=== PATIENT | male | born 1980 | race Caucasian/White ===

== ENCOUNTER 2020-09-25 21:30 | Emergency (ER) | payer MEDICAID ==
[2020-09-25] MEDS ORDERED: LIDOCAINE 5% (700 MG) TRANSDERMAL ADH..PATCH TP ONE (23:28)
--- NOTE | 2020-09-25 23:34 | ER Document Report ---
HPI - HPI Patient complains to provider of: Back pain Time Seen by Provider: 09/25/20 23:21 Pain Level: 3 Context: 40-year-old male presents to the emergency room complaining of worsening low back pain that started yesterday after scrubbing his tub. States he twisted the wrong way had pain that went down both his legs. History of chronic back pain secondary to being in the . Denies any herniated or bulging disc. Denies any loss control of her bowels or bladder. States it is usually relieved with heating pads and ibuprofen this time its not been working. No saddle anesthesia. No red flags. Associated Symptoms: None Exacerbated by: Movement Relieved by: Denies Similar symptoms previously: Yes - History chronic back pain Recently seen / treated by doctor: No - ROS Systems Reviewed and Negative: Yes All other systems reviewed and negative - NEURO Neurology: DENIES: Headache, Weakness - GASTROINTESTINAL Gastrointestinal: DENIES: Abdominal Pain, Nausea, Patient vomiting - URINARY Urinary: DENIES: Dysuria, Urgency, Frequency - MUSCULOSKELETAL Musculoskeletal: REPORTS: Back Pain - DERM Skin Color: Normal Skin Problems: None Past Medical History - General Information source: Patient - Social History Smoking Status: Never Smoker Chew tobacco use (# tins/day): Yes Frequency of alcohol use: None Drug Abuse: None Family History: Reviewed & Not Pertinent Vertical Provider Document - CONSTITUTIONAL Agree With Documented VS: Yes Exam Limitations: No Limitations General Appearance: Mild Distress - INFECTION CONTROL TRAVEL OUTSIDE OF THE [place] IN LAST 30 DAYS: No - HEENT HEENT: Atraumatic, Normocephalic - NECK Neck: Normal Inspection, Supple - RESPIRATORY Respiratory: Breath Sounds Normal, No Respiratory Distress - CARDIOVASCULAR Cardiovascular: Regular Rate, Regular Rhythm, No Murmur - BACK Back: Abnormal Inspection - Mild tenderness on palpation to the lower lumbar region from L4-S1. Nontender of the sciatic notches. Negative straight leg raising bilaterally. No step-offs, no deformities.. negative: CVA Tenderness- Right, CVA Tenderness-Left - MUSCULOSKELETAL/EXTREMETIES Musculoskeletal/Extremeties: FROM - NEURO Level of Consciousness: Awake, Alert, Appropriate Motor/Sensory: No Motor Deficit, No Sensory Deficit Notes: Ambulatory with a steady gait. Neurovascularly intact. - DERM Integumentary: Warm, Dry, No Rash Course - Re-evaluation Re-evalutation: 12/29/20 23:32 Patient drove himself to the emergency room. Will apply lidocaine patch discharged home with a prescription for Flexeril. He was counseled take the Flexeril as prescribed. Can continue with the ibuprofen. Outpatient follow-up with primary care physician if not improving in 2 to 3 days. Patient was given strict return to the emergency room guidelines. Return for any new or worsening symptoms. All questions were answered. Patient verbalized understanding and agrees with plan of care. - Vital Signs Vital signs: Temp Pulse Resp BP Pulse Ox 98.8 F 87 16 121/75 98 09/25/20 22:00 09/25/20 22:00 09/25/20 22:00 09/25/20 22:00 09/25/20 22:00 - Laboratory Results Critical Laboratory Results Reviewed: No Critical Results - Radiology Results Critical Radiology Results Reviewed: No Critical Results Discharge - Discharge Clinical Impression: Lumbar strain Qualifiers: Encounter type: initial encounter Qualified Code(s): S39.012A - Strain of muscle, fascia and tendon of lower back, initial encounter Condition: Stable Disposition: HOME, SELF-CARE Instructions: Muscle Strain ([facility]) Additional Instructions: You have been seen in the Emergency Department (ED) today for back pain. Your workup and exam have not shown any acute abnormalities and you are likely suffering from muscle strain or possible problems with your discs, but there is no treatment that will fix your symptoms at this time. Please take the Flexeril that has been prescribed as directed. You can also continue with your ibuprofen. You can also continue with your ibuprofen. You should also purchase a local lidocaine cream such as "aspercreme with lidocaine" and use per bottle instructions to the affected area. Apply heat to the area as often as you are able. Continue to keep active and avoid prolonged periods of bed rest. Please follow up with your doctor as soon as possible regarding today's ED visit and your back pain. Return to the ED for worsening back pain, fever, weakness or numbness of either leg, or if you develop either (1) an inability to urinate or have bowel movements, or (2) loss of your ability to control your bathroom functions (if you start having "accidents"), or if you develop other new symptoms that concern you.concern you. Prescriptions: Cyclobenzaprine HCl [Flexeril 10 mg Tablet] 10 mg PO TIDP PRN #15 tab PRN Reason:
[2020-09-25 23:39] VITALS: BP 120/72
== END 2020-09-25 23:38 | disposition home or self-care (01) ==
LOC: ER 21:30
DX: S39.012A Strain of muscle, fascia and tendon of lower back, initial encounter (principal); X50.1XXA Overexertion from prolonged static or awkward postures, initial encounter; Y93.E9 Activity, other interior property and clothing maintenance
CPT/HCPCS: 99283; J3490

== ENCOUNTER 2020-09-26 18:52 | Emergency (ER) | payer MEDICAID ==
[2020-09-26] MEDS ORDERED: KETOROLAC TROMETHAMINE 60 MG/2 ML SDV IM ONE (19:38)
[2020-09-26] MEDS ORDERED: ONDANSETRON 4 MG TAB.RAPDIS PO ONE (19:38)
--- NOTE | 2020-09-26 19:46 | ER Document Report ---
ED Medical Screen (RME) - General Chief Complaint: Flank Pain Stated Complaint: LEFT FLANK PAIN Time Seen by Provider: 09/26/20 19:31 Primary Care Provider: DAVID TYLER PA-C [Primary Care Provider] - Follow up as needed Mode of Arrival: Ambulatory Information source: Patient Notes: Patient is a 40-year-old male comes emergency room complaining of left-sided flank pain and abdominal pain. He states he was seen here yesterday for low back pain but did not realize that it was turning into this. He has prescribed a muscle relaxer which is not helping. He does state he has a history of kidney stones but yesterday did not feel this bad or like a kidney stone. Patient states he has not had any urination since about noon today which is approximately 8 hours ago. Anything he eats or drinks seems to be coming back up and vomit. He just vomited prior to coming into the room. He denies any fever. Physical examination shows him to be a well-nourished well-developed 40-year-old male though no apparent distress appears to be in obvious discomfort. Cardiac: Auscultation patient's heart sounds show a heart rate of 75 bpm on the monitor but no auscultated murmurs. Patient's blood pressure is 150/89. Lungs: Bilateral breath sounds with breath sounds increased clear to auscultation. Abdomen: In the sitting position patient does display left-sided flank pain to percussion and moderate amount of discomfort to palpation in the left abdominal area. I have greeted and performed a rapid initial assessment of this patient. A comprehensive ED assessment and evaluation of the patient, analysis of test results and completion of the medical decision making process will be conducted by additional ED providers. Dictation of this chart was performed using voice recognition software; therefore, there may be some unintended grammatical errors. TRAVEL OUTSIDE OF THE [place] IN LAST 30 DAYS: No - Related Data Allergies/Adverse Reactions: No Known Allergies Allergy (Unverified 09/25/20 23:21) Physical Exam - Vital signs Vitals: Temp Pulse Resp BP Pulse Ox 98.9 F 75 16 150/84 H 98 09/26/20 19:06 09/26/20 19:06 09/26/20 19:06 09/26/20 19:06 09/26/20 19:06 Course - Vital Signs Vital signs: Temp Pulse Resp BP Pulse Ox 98.9 F 75 16 150/84 H 98 09/26/20 19:06 09/26/20 19:06 09/26/20 19:06 09/26/20 19:06 09/26/20 19:06 Doctor's Discharge - Discharge Referrals: DAVID TYLER PA-C [Primary Care Provider] - Follow up as needed
--- NOTE | 2020-09-26 20:40 | RADIOLOGY REPORT (SQ) ---
EXAM DESCRIPTION: CT ABDOMEN PELVIS WITHOUT IV CONTRAST COMPLETED DATE/TME: 09/26/2020 19:51 CLINICAL HISTORY: 40 years, Male, Left flank pAIN COMPARISON: None. TECHNIQUE: Axial images without IV contrast. Sagittal coronal reconstruction. Images stored on PACS. All CT scanners at this facility use dose modulation, iterative reconstruction, and/or weight based dosing when appropriate to reduce radiation dose to as low as reasonably achievable (ALARA). FINDINGS: Lung bases unremarkable. Mild elevation of the right hemidiaphragm. Mild fatty liver. Spleen, pancreas, biliary system, adrenal glands, aorta and para-aortic regions are unremarkable. No suspicious bowel or peritoneal abnormalities. Normal appendix. Tiny umbilical hernia. Right kidney without acute findings. Approximately five nonobstructing right kidney stones are present. Left kidney demonstrates minimal swelling and hydronephrosis. A single tiny nonobstructing stone is present. There is left hydroureter. CT of the pelvis demonstrates an elevated stone in the distal left ureter that measures 7 x 3 mm. May represent cluster of two smaller stones. The stones are located just proximal to the left UV junction. Urinary bladder significantly contracted without obvious abnormality. Prostate not enlarged. No suspicious distal colonic abnormalities. Bony pelvis is unremarkable. IMPRESSION: 1. Left hydronephrosis caused by stone formation in the distal left ureter. Possible single elongated stone versus cluster of two smaller stones. 2. Tiny nonobstructing left kidney stone. Multiple nonobstructing right kidney stones. 3. Fatty liver.
[2020-09-26 20:55] LABS: ABSOLUTE LYMPHOCYTES (AUTO) 0.6 10^3/uL (0.5-4.7); ABSOLUTE MONOCYTES (AUTO) 0.9 10^3/uL (0.1-1.4); BASOPHILS % (AUTO) 0.2 % (0-2); EOSINOPHILS % (AUTO) 0.2 % (0-6); HEMATOCRIT 44.3 % (37.9-51.0); HEMOGLOBIN 15.5 g/dL (13.5-17.0); LYMPHOCYTES % (AUTO) 5.5 % (13-45); MEAN CORPUSCULAR HEMOGLOBIN 30.5 pg (27.0-33.4); MEAN CORPUSCULAR VOLUME 87 fl (80-97); MONOCYTES % (AUTO) 7.6 % (3-13); PLATELET COUNT 298 10^3/uL (150-450); RED BLOOD COUNT 5.08 10^6/uL (4.35-5.55); SEGMENTED NEUTROPHILS % (AUTO) 86.5 % (42-78); TOTAL CELLS COUNTED % (AUTO) 100 %; WHITE BLOOD COUNT 11.5 10^3/uL (4.0-10.5)
[2020-09-26 21:07] LABS: ALBUMIN 4.9 g/dL (3.5-5.0); ALKALINE PHOSPHATASE 86 U/L (38-126); ANION GAP 12 (5-19); ASPARTATE AMINO TRANSFERASE 30 U/L (17-59); BILIRUBIN,DIRECT 0.2 mg/dL (0.0-0.4); BILIRUBIN,TOTAL 1.7 mg/dL (0.2-1.3); BLOOD UREA NITROGEN 19 mg/dL (7-20); CALCIUM 10.2 mg/dL (8.4-10.2); CARBON DIOXIDE 27 mmol/L (22-30); CHLORIDE 101 mmol/L (98-107); GLUCOSE 111 mg/dL (75-110); POTASSIUM 4.9 mmol/L (3.6-5.0); TOTAL PROTEIN 7.7 g/dL (6.3-8.2)
[2020-09-26 23:11] LABS: APPEARANCE,URINE CLEAR; BILIRUBIN,URINE NEGATIVE (NEGATIVE); COLOR,URINE YELLOW; GLUCOSE, URINE NEGATIVE (NEGATIVE); KETONES,URINE NEGATIVE (NEGATIVE); LEUKOCYTE ESTERASE,URINE TRACE (NEGATIVE); NITRITE,URINE NEGATIVE (NEGATIVE); PROTEIN,URINE NEGATIVE (NEGATIVE); URINE SPECIFIC GRAVITY 1.017; UROBILINOGEN,URINE NEGATIVE mg/dL (<2.0)
[2020-09-26 23:33] VITALS: BP 126/73
--- NOTE | 2020-09-27 00:28 | ER Document Report ---
ED GI/ - General Chief Complaint: Flank Pain Stated Complaint: LEFT FLANK PAIN Time Seen by Provider: 09/26/20 19:31 Primary Care Provider: [facility] [Provider Group] - Follow up as needed [facility] [Provider Group] - Follow up as needed DAVID TYLER PA-C [Primary Care Provider] - Follow up as needed Mode of Arrival: Ambulatory Notes: I originally saw patient in triage and did his H&P then and pick him up at the end of my shift because he had not been followed up on as of yet and all labs and CT were back. Patient is a 40-year-old male comes emergency room complaining of left-sided flank pain and abdominal pain. He states he was seen here yesterday for low back pain but did not realize that it was turning into this. He has prescribed a muscle relaxer which is not helping. He does state he has a history of kidney stones but yesterday did not feel this bad or like a kidney stone. Patient states he has not had any urination since about noon today which is approximately 8 hours ago. Anything he eats or drinks seems to be coming back up and vomit. He just vomited prior to coming into the room. He denies any fever. TRAVEL OUTSIDE OF THE [place] IN LAST 30 DAYS: No - HPI Patient complains to provider of: Abdominal pain, Flank pain Onset: Yesterday Timing/Duration: Sudden, Persistent, Worse Quality of pain: Cramping, Pressure, Throbbing Severity at maximum: Severe Severity in ED: Severe Pain Level: 4 Location: LLQ, Left flank Associated symptoms: Hematuria, Nausea, Vomiting. denies: Chills, Fever Exacerbated by: Denies Relieved by: Denies Similar symptoms previously: Yes Recently seen / treated by doctor: Yes - Related Data Allergies/Adverse Reactions: No Known Allergies Allergy (Unverified 09/25/20 23:21) Past Medical History - General Information source: Patient - Social History Smoking Status: Unknown if Ever Smoked Frequency of alcohol use: None Drug Abuse: None Lives with: Family Family History: Reviewed & Not Pertinent Review of Systems - Review of Systems Constitutional: No symptoms reported EENT: No symptoms reported Cardiovascular: No symptoms reported Respiratory: No symptoms reported Gastrointestinal: See HPI, Abdominal pain, Nausea, Vomiting Genitourinary: See HPI, Flank pain, Hematuria Male Genitourinary: No symptoms reported Musculoskeletal: No symptoms reported Skin: No symptoms reported Hematologic/Lymphatic: No symptoms reported Neurological/Psychological: No symptoms reported -: Yes All other systems reviewed and negative Physical Exam - Vital signs Vitals: Temp Pulse Resp BP Pulse Ox 98.9 F 75 16 150/84 H 98 09/26/20 19:06 09/26/20 19:06 09/26/20 19:06 09/26/20 19:06 09/26/20 19:06 Interpretation: Hypertensive - Notes Notes: PHYSICAL EXAMINATION: GENERAL: Patient is a well-nourished well-developed 40-year-old male no apparent distress but appears awful uncomfortable. HEAD: Atraumatic, normocephalic. NECK: Normal range of motion, supple without lymphadenopathy LUNGS: Breath sounds clear to auscultation bilaterally and equal. No wheezes rales or rhonchi. HEART: Regular rate and rhythm without murmurs ABDOMEN: Soft, examination patient's abdomen shows he has bowel sounds present all 4 quads. Patient has some left sided tenderness to deep ballottement and he has left-sided flank tenderness to percussion. Musculoskeletal: Normal range of motion, no pitting or edema. No cyanosis. NEUROLOGICAL:Normal speech, normal gait. Normal sensory, motor exams PSYCH: Normal mood, normal affect. SKIN: Warm, Dry, normal turgor, no rashes or lesions noted. Course - Re-evaluation Re-evalutation: 09/27/20 00:41 As stated I had originally work patient up in triage ordered a CT and labs and patient was going to be picked up in the back however we got super busy and patient ended up spending almost 4 and half to 5 hours in the triage waiting room. I started going back through patients that had completed labs that I could possibly handle saw his case his CT reported that he had left hydronephrosis caused by a stone formation in the distal left ureter possibly a single elongated stone versus a cluster of 2 smaller stones and he has tiny nonobstructing left kidney stones and multiple nonobstructing right kidney stones his labs showed a 12 point white count but his urine only showed a large amount of blood. His renal function was up slightly at 1.5 and I went to get patient from the waiting room and he had walked out the door about 5 minutes prior. I immediately asked the triage reinsurance clerk to give me his phone number which is [phone] and I contacted him by phone and he answered. I asked him how his pain was and he said it was down to almost nothing after the Toradol shot and I talked him into coming back to the emergency room to let me write him prescriptions to leave. Patient did not want to wait any longer but agreed to come back. I wrote him prescriptions for Toradol pills, Flomax, Zofran and I gave him our sixpack of hydrocodone. I explained to patient that he needs to see a urologist this week and to get one on board because he has multiple stones in the right kidney and some in the left kidney. I have informed him that if he spikes a fever or the pain comes back and is unrelenting to return to ER at once and he has agreed. So I am discharging patient because he had originally left and came back for discharge paperwork and medications to hopefully help keep his pain at bay. I did not write him for any antibiotics given that his urine was not contaminated at this time. I explained to them hydronephrosis and the possibility of thing coming back and if it was worse he needs to return to ER for evaluation again. I have also given him [facility] u[facility] for follow-up and told him to call their office tomorrow. - Vital Signs Vital signs: Temp Pulse Resp BP Pulse Ox 98.4 F 83 18 126/73 H 99 09/26/20 23:33 09/26/20 23:33 09/26/20 23:33 09/26/20 23:33 09/26/20 23:33 - Laboratory Results Result Diagrams: 09/26/20 20:00 09/26/20 20:00 Laboratory Results Interpreted: 09/26/20 09/26/20 09/26/20 20:00 20:00 22:44 WBC 11.5 H Lymph % (Auto) 5.5 L Absolute Neuts (auto) 10.0 H Seg Neutrophils % 86.5 H Creatinine 1.49 H Est GFR (MDRD) Non-Af 52 L Glucose 111 H Total Bilirubin 1.7 H Urine Blood LARGE H Ur Leukocyte Esterase TRACE H Critical Laboratory Results Reviewed: No Critical Results - Radiology Results Critical Radiology Results Reviewed: No Critical Results Discharge - Discharge Clinical Impression: Ureterolithiasis Condition: Stable Disposition: HOME, SELF-CARE Instructions: Kidney Stone ([facility]) Additional Instructions: Home and rest. Medication as prescribed. As we discussed you have 1 or 2 stones in your very far end of your urethra which is just before the bladder so they should drop on their own however if it is 1 stone it may take it longer and it may occlude. Since your pain is controlled with the Toradol I am sending you home with Toradol pills, Flomax, hydrocodone, and since you have no infection currently in your urine we do not need to start antibiotics. As we discussed you have multiple stones in your left and right kidneys so you should really establish with a urologist as soon as possible. We do not have a urologist on- call today for the emergency room but you can contact [facility] local office and they are always happy to see patients from here. Should you have increasing pain discomfort nausea and vomiting or spike a fever have not seen urologist return to ER at once for reevaluation. Prescriptions: Ketorolac Tromethamine [Toradol 10 mg Tablet] 10 mg PO Q6HP PRN #15 tablet PRN Reason: Tamsulosin HCl [Flomax] 0.4 mg PO DAILY #20 cap.er.24h Ondansetron [Zofran Odt 4 mg Tablet] 1 - 2 tab PO Q4H PRN #15 tab.rapdis PRN Reason: For Nausea/Vomiting Referrals: DAVID TYLER PA-C [Primary Care Provider] - Follow up as needed [facility] [Provider Group] - Follow up as needed [facility] [Provider Group] - Follow up as needed
[2020-09-27] MEDS ORDERED: HYDROCODONE/ACETAMINOPHEN 5-325 MG (6 TAB/ER DISP) PO PRN (00:29)
[2020-09-27] MEDS ORDERED: TAMSULOSIN HCL 0.4 MG CAP.SR.24H PO ONE (00:29)
[2020-09-27] MEDS ORDERED: ONDANSETRON 4 MG TAB.RAPDIS PO ONE (00:32)
== END 2020-09-27 00:44 | disposition home or self-care (01) ==
LOC: ER 18:52
DX: N13.2 Hydronephrosis with renal and ureteral calculous obstruction (principal); M54.5 Low back pain; R10.9 Unspecified abdominal pain; R10.819 Abdominal tenderness, unspecified site; R31.9 Hematuria, unspecified; R11.2 Nausea with vomiting, unspecified
CPT/HCPCS: 99285; 96372; 36415; 87086; 85025; 80053; 81001; 74176; J1885; S0119 ×2; J3490